=== PATIENT | female | born 1950 | race Caucasian/White ===

== ENCOUNTER 2017-12-23 08:29 | Day surgery (SDC) | payer MEDICARE, OTHER ==
[~2017-12-23] VITALS: Ht 170.2 cm; Wt 61.2 kg
[~2017-12-23 08:29] MED LIST: CALCIUM500 M1 PO; DILTIAZEM 24HR180 M1 PO; ESCITALOPRAM OX20 MG PO; FUROSEMIDE20 MG PO; LIPITOR20 MG PO; MAGNESIUM27 MG PO; MULTIVITAMINS1 EAC7 PO; PINDOLOL10 MG PO; SUDOGEST60 MG PO; ULTRAM50 MG PO; VALACYCLOVIR500 MG PO; VITAMIN B122500 MC1 PO; ZANAFLEX4 M1 PO; ZESTRIL40 MG PO
--- NOTE | 2017-12-23 10:44 | NUR ---
12/23/17 1044 Katherin Iverson 1034 PT ARRIVES TO PACU. AWAKENS TO VOICE. DENIES PAIN AND NAUSEA. 02 AT 2L VIA NC. VITALS STABLE.
--- NOTE | 2017-12-24 09:05 | OR ---
[facility] [address] [place], [place] [address] Signed DATE OF OPERATION: 12/23/2017 SURGEON: Herb Alcantar MD UPPER ENDOSCOPY REPORT PREOPERATIVE DIAGNOSES: 1. History of Sandoval's esophagus. 2. Bloating, vomiting and burping. 3. Hiatal hernia and acid reflux. 4. Chronic mild esophageal dysphagia. 5. History of gastroduodenitis. 6. History of shallow gastric ulcer. POSTOPERATIVE DIAGNOSES: 1. Antral gastric ulcers x3. 2. Cmgiadnr-ic-xephwk hemorrhagic gastroduodenitis. 3. Small hiatal hernia. 4. No visible evidence of Sandoval's esophagus. PROCEDURES PERFORMED: EGD with CLOtest and biopsies of the pyloric bulb, antrum and GE junction. ESTIMATED BLOOD LOSS: None. INDICATIONS OF DESCRIPTION: Claudia is a 67-year-old female who has presented now over multiple years with similar upper GI symptoms. She is said to have a history of Sandoval's esophagus along with a hiatal hernia and acid reflux. She always has bloating, vomiting and burping. She has chronic mild esophageal dysphagia with a previous history of gastric duodenitis and a possible shallow gastric ulcer. She also has significant anxiety, for which she takes medication. Interestingly, she takes no medication for her stomach. She is now retired and helping raise two grandchildren and continue to smoke about a pack of cigarettes a day. In the office, I gave her a booklet on acid reflux, hiatal hernias, and Sandoval's esophagus. We looked at the pictures for upper endoscopy. She is very familiar with that test. There is risk including, but not limited to gas bloating, crampy abdominal pain, bleeding, perforation requiring surgery, and missed diagnosis. She also understands the need for IV conscious sedation. She had expressed understanding, and wished to proceed. Electronically Signed By: HERB ALCANTAR MD 12/24/17 0905 PATIENT NAME: CLAUDIA CRUZ OPERATIVE REPORT DATE OF : 48 REPORT #: [id number] PHYSICIAN: HERB ALCANTAR MD PCP: RHIANNA TOBAR MD REPORT IS CONFIDENTIAL AND NOT TO BE RELEASED WITHOUT AUTHORIZATION [facility] [address] [place], [place] [address] Signed DESCRIPTION OF PROCEDURE: Claudia was taken into endoscopy suite and placed in the supine semi-recumbent position. She was given 5 mg of Versed and 100 mcg of fentanyl to cover the case. The posterior oropharynx was anesthetized with Hurricaine spray. A bite block was utilized for the case. The adult gastroscope was introduced and advanced all the way out into the third portion of the duodenum under direct visualization of the camera without difficulty. The second, and third portions of duodenum were fine, but the pyloric bulb was clearly inflamed with hemorrhagic punctate areas. No obvious ulcerations in the pyloric bulb itself. We did take biopsies from the bulb for pathologic review. Back in the stomach, she had two ulcers on the rim of the antrum going into the pyloric bulb and then one proximal that was moderately large and been fairly deep. Of course, she has multiple areas of punctate hemorrhage throughout her stomach as well. We took biopsies of the antrum for CLOtest, as well as pathologic review. We saw no evidence of any cancer. Upon retroflexion of the scope, she has just a very small hiatal hernia. The scope was withdrawn through the area of GE junction, which was compliant without stricture. We saw no gastric or esophageal varices. She has a little granulation tissue around the Z-line, but no Sandoval's mucosa. The middle and upper esophagus were fine. After this, the gas was suctioned out and the gastroscope removed. Claudia tolerated the procedure quite well. RECOMMENDATIONS: I have written a prescription for Prilosec 20 mg p.o. b.i.d. for two months. After that, she can cutback to once a day or move back to an H2 ciara. In the meantime I will see her in the office in a week or so for followup. Herb Alcantar MD ALB/MODL /[id number] cc: MD Rhianna Cabrera MD Electronically Signed By: HERB ALCANTAR MD 12/24/17 0905 PATIENT NAME: CLAUDIA CRUZ OPERATIVE REPORT DATE OF : 48 REPORT #: [id number] PHYSICIAN: HERB ALCANTAR MD PCP: RHIANNA TOBAR MD REPORT IS CONFIDENTIAL AND NOT TO BE RELEASED WITHOUT AUTHORIZATION [address] [address] Signed Copies: HERB ALCANTAR MD, RUSSEL J MD ~ Electronically Signed By: HERB ALCANTAR MD 12/24/17 0905 PATIENT NAME: NANCYCLAUDIA OPERATIVE REPORT DATE OF : 48 REPORT #: [id number] PHYSICIAN: HERB ALCANTAR MD PCP: RHIANNA TOBAR MD REPORT IS CONFIDENTIAL AND NOT TO BE RELEASED WITHOUT AUTHORIZATION
== END 2017-12-23 11:21 | disposition home or self-care (01) ==
LOC: OPS 08:29 → DS 08:29 → OPS 09:45 → DS 09:45 → OPS 11:21
PROVIDERS: Colon & Rectal Surgery
PROC: 0DB78ZX Excision of Stomach, Pylorus, Via Natural or Artificial Opening Endoscopic, Diagnostic (ICD-10-PCS; 2017-12-23)
PROC: 0DB48ZX Excision of Esophagogastric Junction, Via Natural or Artificial Opening Endoscopic, Diagnostic (ICD-10-PCS; 2017-12-23)
PROC: 0DB98ZX Excision of Duodenum, Via Natural or Artificial Opening Endoscopic, Diagnostic (ICD-10-PCS; principal; 2017-12-23 09:45)
DX: K29.50 Unspecified chronic gastritis without bleeding (principal); K29.80 Duodenitis without bleeding; K21.0 Gastro-esophageal reflux disease with esophagitis; K44.9 Diaphragmatic hernia without obstruction or gangrene; K25.9 Gastric ulcer, unspecified as acute or chronic, without hemorrhage or perforation; I10 Essential (primary) hypertension; E78.5 Hyperlipidemia, unspecified; M85.80 Other specified disorders of bone density and structure, unspecified site; M19.90 Unspecified osteoarthritis, unspecified site; F32.9 Major depressive disorder, single episode, unspecified; F41.9 Anxiety disorder, unspecified; F17.210 Nicotine dependence, cigarettes, uncomplicated; Z88.2 Allergy status to sulfonamides; Z79.891 Long term (current) use of opiate analgesic; Z79.899 Other long term (current) drug therapy
CPT/HCPCS: 86677; 99153; G0500; J2250; J3010; J7120

== ENCOUNTER 2022-01-29 18:10 | Emergency (ER) | payer MEDICARE, OTHER ==
[~2022-01-29] VITALS: Ht 170.2 cm; Wt 61.2 kg
--- OUTSIDE RECORDS SUMMARY | 2022-01-29 18:13 | XMS ---
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 EYani VISIT COUNT (12 MO.) 1 [facility] TOTAL 1 NOTE: Visits indicate total known visits. ED/UCC VISIT TRACKING (12 MO.) 01/29/2022 18:11 [facility] [place] TYPE: Emergency COMPLAINT: - NECK PAIN INPATIENT VISIT TRACKING (12 MO.) No inpatient visits to display in this time frame [id number]
[2022-01-29] MEDS ORDERED: HYDROCODON-ACE1 EA10 PO (18:45)
[2022-01-29] MEDS ORDERED: METOPROLOL SUCC50 MG PO (19:58)
[2022-01-29] MEDS ORDERED: GABAPENTIN300 MG PO (19:58)
== END 2022-01-29 20:03 | disposition home or self-care (01) ==
LOC: ED 18:10
DX: M43.6 Torticollis (principal); I10 Essential (primary) hypertension; E78.00 Pure hypercholesterolemia, unspecified; F17.200 Nicotine dependence, unspecified, uncomplicated; Z88.2 Allergy status to sulfonamides; Z79.899 Other long term (current) drug therapy
CPT/HCPCS: 96372; 99283; A9270; J1885

== ENCOUNTER 2023-07-05 11:54 | Inpatient (IN) | payer MEDICARE, OTHER ==
[~2023-07-05] VITALS: Ht 170.2 cm; Wt 62.8 kg
[~2023-07-05 11:54] MED LIST changes: +GABAPENTIN300 MG PO; +HYDROCODON-ACE1 EA10 PO; +METOPROLOL SUCC50 MG PO
--- OUTSIDE RECORDS SUMMARY | 2023-07-05 11:56 | XMS ---
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 Diego has no Care Guidelines for this patient. Carina VISIT COUNT (12 MO.) 1 [facility] TOTAL 1 NOTE: Visits indicate total known visits. ED/UCC VISIT TRACKING (12 MO.) 07/05/2023 11:54 [facility] [place] TYPE: Emergency COMPLAINT: - FALL INPATIENT VISIT TRACKING (12 MO.) No inpatient visits to display in this time frame [id number]
[2023-07-05] MEDS ORDERED: HYDROmorphone HCL 1 MG/ML SYR IV ONE (12:15)
[2023-07-05 12:33] LABS: BASOPHILS 0.8 % (0-2); EOSINOPHILS 1.3 % (0-6); HEMATOCRIT 35.7 % (35.0-50.0); HEMOGLOBIN 12.6 g/dL (12.0-18.0); LYMPHOCYTES 10.4 % (24-44); MCH 37.1 (27-36); MCHC 35.4 g/dl (30-36); MCV 104.9 fl (81-99); MONOCYTES 9.1 % (0-12); NEUTROPHILS 78.4 % (39-80); PLATELET COUNT 210 K/uL (140-440); RDW 15.1 (10.5-15.0)
[2023-07-05 12:56] LABS: ALBUMIN 3.4 g/dL (3.4-5.0); ALBUMIN/GLOBULIN RATIO 1.1 (1.1-2.4); BUN/CREATININE RATIO 9.85 (6.0-28.6); CALCIUM 8.5 mg/dL (8.5-10.1); CREATININE, SERUM 0.71 mg/dL (0.55-1.02); PROTEIN, TOTAL 6.5 g/dL (6.4-8.2)
[2023-07-05 13:05] LABS: ANION GAP 16.5 (7-21)
[2023-07-05 13:07] LABS: POTASSIUM 2.5 mmol/L (3.5-5.1)
[2023-07-05] MEDS ORDERED: HYDROmorphone HCL 1 MG/ML SYR IV PRN (13:45)
[2023-07-05 13:55] LABS: ABO A; ANTIBODY SCREEN NEGATIVE; RH POSITIVE
[2023-07-05] MEDS ORDERED: LIDOCAINE 2% VISCOUS 6 ML SYR TOP ONE (14:00)
[2023-07-05] MEDS ORDERED: LACTATED RINGER'S 1,000 ML IV SCH (14:00)
[2023-07-05] MEDS ORDERED: IBLOOD GLUCOSE TEST STRIP 1 EA TEST XX PRN (14:00)
[2023-07-05] MEDS ORDERED: POTASSIUM CHLORIDE 40 MEQ,LIDOCAINE HCL 1% 40 MG in DEXTROSE 5% 500 ML IV ONE (14:30)
[2023-07-05 15:05] VITALS: BP 144/76
[2023-07-05] MEDS ORDERED: DILTIAZEM 24HR180 M1 PO (16:14)
[2023-07-05] MEDS ORDERED: TIZANIDINE HCL4 MG PO (16:15)
[2023-07-05] MEDS ORDERED: OMEPRAZOLE20 MG PO (16:16)
[2023-07-05] MEDS ORDERED: TRAMADOL HCL50 MG PO (16:34)
[2023-07-05] MEDS ORDERED: POTASSIUM CHLORIDE 10 MEQ TABCR PO ONE ×2 (16:45→22:30)
[2023-07-05] MEDS ORDERED: OXYCODONE/APAP 5/325 TAB PO PRN (16:45)
[2023-07-05 17:15] VITALS: BP 146/83
[2023-07-05 17:20] VITALS: BP 146/83
[2023-07-05] MEDS ORDERED: LIDOCAINE HCL 2% 5 ML SDV ONE (19:59)
[2023-07-05] MEDS ORDERED: Ropivacaine HCl 0.5% 30 ML VIAL ONE (19:59)
[2023-07-05] MEDS ORDERED: SODIUM CHLORIDE 0.9% 20 ML IV ONE (19:59)
[2023-07-05] MEDS ORDERED: DEXAMETHASONE SOD PHOS 4 MG/ML VIAL ONE (19:59)
[2023-07-05 21:56] VITALS: BP 126/76
[2023-07-05 21:58] VITALS: BP 126/76
[2023-07-05 22:06] LABS: MAGNESIUM 1.2 mg/dL (1.8-2.4); POTASSIUM 3.3 mmol/L (3.5-5.1)
[2023-07-05] MEDS ORDERED: MAGNESIUM SULFATE 4 GM/100 ML BAG IV SCH (22:30)
[2023-07-06] VITALS (11 sets, daily range): BP systolic 102–150; BP diastolic 68–97
[2023-07-06 05:25] LABS: BASOPHILS 0.2 % (0-2); HEMATOCRIT 37.1 % (35.0-50.0); HEMOGLOBIN 12.9 g/dL (12.0-18.0); LYMPHOCYTES 3.6 % (24-44); MCHC 34.9 g/dl (30-36); MONOCYTES 2.1 % (0-12); NEUTROPHILS 94.1 % (39-80); PLATELET COUNT 198 K/uL (140-440); RDW 15.4 (10.5-15.0)
[2023-07-06 05:39] LABS: ALBUMIN 3.2 g/dL (3.4-5.0); ANION GAP 10.2 (7-21); BILIRUBIN, TOTAL 1.3 ng/dL (0.2-1.0); BUN/CREATININE RATIO 12.69 (6.0-28.6); CALCIUM 8.2 mg/dL (8.5-10.1); CREATININE, SERUM 0.63 mg/dL (0.55-1.02); POTASSIUM 4.2 mmol/L (3.5-5.1); PROTEIN, TOTAL 6.4 g/dL (6.4-8.2)
[2023-07-06] MEDS ORDERED: hydrOXYzine pamoate 25 MG CAP PO ONE (06:45)
[2023-07-06] MEDS ORDERED: CEFAZOLIN SODIUM 2 GM/20 ML SYR IV SCH ×2 (07:00→18:00)
[2023-07-06] MEDS ORDERED: LIDOCAINE HCL 1% 5 ML SDV SUB-Q ONE (07:00)
[2023-07-06] MEDS ORDERED: INTRA-ARTICULAR ANALGESIC INJECTION XX SCH (07:00)
[2023-07-06] MEDS ORDERED: TRANEXAMIC ACID 2,000 MG in SODIUM CHLORIDE 0.9% 100 ML IV SCH (07:00)
[2023-07-06] MEDS ORDERED: LACTATED RINGER'S 1,000 ML IV SCH (07:30)
[2023-07-06] MEDS ORDERED: MIDAZOLAM HCL 2 MG/2 ML VIAL ONE (10:44)
[2023-07-06] MEDS ORDERED: LIDOCAINE HCL 2% 5 ML SDV ONE ×2 (11:19→11:29)
[2023-07-06] MEDS ORDERED: propofoL 200 MG/20 ML VIAL ONE (11:19)
[2023-07-06] MEDS ORDERED: Ropivacaine HCl 0.5% 30 ML VIAL ONE (11:20)
[2023-07-06] MEDS ORDERED: DEXAMETHASONE SOD PHOS 4 MG/ML VIAL ONE (11:20)
[2023-07-06] MEDS ORDERED: ondansetron HCL 4 MG/2 ML VIAL ONE (11:20)
[2023-07-06] MEDS ORDERED: SODIUM CHLORIDE 0.9% 20 ML IV ONE (11:20)
[2023-07-06] MEDS ORDERED: BUPIVACAINE 0.75% IN DEXTROSE 2 ML AMP ONE (11:22)
[2023-07-06] MEDS ORDERED: CEFAZOLIN SODIUM 2 GM/20 ML SYR ONE (11:44)
[2023-07-06] MEDS ORDERED: KETAMINE in NS 50 MG/5 ML SYR ONE (11:59)
[2023-07-06] MEDS ORDERED: LACTATED RINGER'S 1,000 ML IV ONE (12:59)
[2023-07-06] MEDS ORDERED: fentaNYL citrate 50 MCG/ML SDV IV PRN (13:00)
[2023-07-06] MEDS ORDERED: droPERidol 5 MG/2 ML VIAL IV PRN (13:00)
[2023-07-06] MEDS ORDERED: ondansetron HCL 4 MG/2 ML VIAL IV PRN (13:00)
[2023-07-06] MEDS ORDERED: IBLOOD GLUCOSE TEST STRIP 1 EA TEST VI PRN (13:00)
[2023-07-06] MEDS ORDERED: NALOXONE HCL 0.4 MG SYR IV PRN (13:00)
[2023-07-06] MEDS ORDERED: PROCHLORPERAZINE EDISYLATE 10 MG/2 ML VIAL IV PRN (13:00)
[2023-07-06] MEDS ORDERED: HYDROmorphone HCL 1 MG/ML SYR IV PRN (13:00)
[2023-07-06] MEDS ORDERED: ondansetron HCL 4 MG TAB PO PRN (13:30)
[2023-07-06] MEDS ORDERED: [UNRECOGNIZED DRUG - CODE] PO PRN (13:45)
[2023-07-06] MEDS ORDERED: TRANEXAMIC ACID IN NACL,ISO-OS 1,000 MG/100 ML PIGGYBACK IV ONE (15:00)
[2023-07-06] MEDS ORDERED: ACETAMINOPHEN 500 MG TAB PO SCH (15:00)
[2023-07-07] VITALS (25 sets, daily range): BP systolic 91–149; BP diastolic 53–97
[2023-07-07] MEDS ORDERED: CEFAZOLIN SODIUM 2 GM/20 ML SYR IV ONE (04:00)
--- NOTE | 2023-07-07 07:56 | OR ---
[facility] [address] [place], [place] [address] Signed DATE OF OPERATION: 07/06/2023 SURGEON: Manny Brannon MD PREOPERATIVE DIAGNOSIS: Garden 4 femoral neck fracture, right. POSTOPERATIVE DIAGNOSIS: Garden 4 femoral neck fracture, right. PROCEDURE PERFORMED: Right bipolar hemiarthroplasty. ENTERPRISE APPLICATION ANALYST: Brenda Moon PA-C. Brenda was present and critical for all portions of procedure. ANESTHESIA: Spinal. BLOOD LOSS: 175 mL. IMPLANTS: Andre Echo FX size 11 stem with a +0 head and a 44 bipolar. BRIEF HISTORY: Claudia is a 73-year-old female, who suffered a ground level fall yesterday fracturing her hip and her right wrist. She was seen in the ER. Her labs revealed her potassium to be 2.5. She was admitted and her potassium was replaced and she was felt to be stable for surgery today. Risks and benefits of operative treatment discussed with her and she elected to proceed. PROCEDURE IN DETAIL: Once consent was obtained she was taken to the operating room. After adequate anesthesia she was placed in the left lateral decubitus position. All downside pressure points were well padded and the axillary roll was placed. The hip was then prepped and draped in a standard sterile fashion. The hip was approached through standard anterior lateral approach. This was carried through skin and subcutaneous tissue. The IT band was divided longitudinally. The vastus lateralis was then split from the tip of the Electronically Signed By: MANNY BRANNON MD 07/07/23 0756 PATIENT NAME: CLAUDIA CRUZ OPERATIVE REPORT DATE OF : 48 REPORT #: [id number] PHYSICIAN: MANNY BRANNON MD PCP: SAMUEL PERRIN PA-C REPORT IS CONFIDENTIAL AND NOT TO BE RELEASED WITHOUT AUTHORIZATION [facility] [address] [place], [place] [address] Signed trochanter along the anterior margin of the femur distally and elevated in a subperiosteal manner to the level of the lesser trochanter. The gluteus and capsule were then split from the trochanter to the acetabular rim and peeled off the anterior femoral neck. The femoral neck fracture was quite proximal. The femoral neck cut was then made one fingerbreadth above the lesser trochanter. The napkin ring of bone was removed as was the femoral head. Femoral head was sized to 44. The 44 trial fit in the acetabulum quite nicely. Attention was turned to the proximal femur. Proximal femur was opened using the Next Callerie cutter followed by the Charzachariah awl. It was then sequentially broached up to an 11. The 11 was found to be quite well fitting. The 11 stem was then obtained and impacted until it was well-seated. This was then trialed using a +0 head and a 44 bipolar. This was quite stable with negative Shuck. We then dislocated the hip and removed the trial head. The head components were then obtained and put together on the back table. The head was then impacted onto the femoral stem. Again, the hip was reduced. Excellent leg lengths and stability were noted. There was no impingement. The wound was copiously irrigated with a bottle of Surgiphor followed by normal saline. The periarticular soft tissues were injected with 100 mL ropivacaine Toradol mixture. The capsule was closed using #2 FiberWire. The vastus and IT band layers were closed independently using #1 Stratafix. Subcutaneous tissue with 0 Stratafix and skin with kusum. Wound was sealed with LiquiBand and an Acticoat-7 dressing was applied. She was awakened, taken to recovery room in satisfactory condition. All sponge, needle, and instrument counts were correct. Manny Brannon MD BA/MODL /[id number] Copies: ~ Electronically Signed By: MANNY BRANNON MD 07/07/23 0756 PATIENT NAME: CLAUDIA CRUZ OPERATIVE REPORT DATE OF : 48 REPORT #: [id number] PHYSICIAN: MANNY BRANNON MD PCP: SAMUEL PERRIN PA-C REPORT IS CONFIDENTIAL AND NOT TO BE RELEASED WITHOUT AUTHORIZATION
[2023-07-07] MEDS ORDERED: Rivaroxaban 10 MG TAB PO SCH (08:00)
[2023-07-07] MEDS ORDERED: OXYCODONE HCL 5 MG TAB PO PRN (08:15)
--- NOTE | 2023-07-07 11:01 | EKG ---
[facility] [address] [facility] [place], [place] [address] Signed Normal sinus rhythm with sinus arrhythmia Minimal voltage criteria for LVH, may be normal variant ( Ambrosio product ) Nonspecific T wave abnormality Abnormal ECG No previous ECGs available Confirmed by Darren Gutiérrez MD ([id number]) on 07/07/2023 11:01:14 AM Electronically Signed By: DARREN GUTIÉRREZ 07/07/23 1101 PATIENT NAME: THERESA CRUZ Electrocardiogram DATE OF : 48 PHYSICIAN: DARREN GUTIÉRREZ REPORT #: [id number] REPORT IS CONFIDENTIAL AND NOT TO BE RELEASED WITHOUT AUTHORIZATION
--- NOTE | 2023-07-07 11:04 | EKG ---
[facility] [address] [facility] [place] [address] Signed Normal sinus rhythm Normal ECG When compared with ECG of 05-JUL-2023 16:32, (Unconfirmed) Sinus rhythm has replaced Atrial fibrillation Confirmed by Dagoberto Gutiérrez MD ([id number]) on 07/07/2023 11:04:15 AM Electronically Signed By: DAGOBERTO GUTIÉRREZ 07/07/23 1104 PATIENT NAME: THERESA CRUZ Electrocardiogram DATE OF : 48 PHYSICIAN: DAGOBERTO GUTIÉRREZ REPORT #: [id number] REPORT IS CONFIDENTIAL AND NOT TO BE RELEASED WITHOUT AUTHORIZATION
--- NOTE | 2023-07-07 11:04 | EKG ---
[facility] [address] [facility] [place] [address] Signed Atrial fibrillation Nonspecific ST abnormality Abnormal ECG When compared with ECG of 05-JUL-2023 12:34, (Unconfirmed) Atrial fibrillation has replaced Sinus rhythm Confirmed by Darren Gutiérrez MD ([id number]) on 07/07/2023 11:04:17 AM Electronically Signed By: DARREN GUTIÉRREZ 07/07/23 1104 PATIENT NAME: NANCYTHERESA Electrocardiogram DATE OF : 48 PHYSICIAN: DARREN GUTIÉRREZ REPORT #: [id number] REPORT IS CONFIDENTIAL AND NOT TO BE RELEASED WITHOUT AUTHORIZATION
[2023-07-07] MEDS ORDERED: PANTOPRAZOLE SODIUM 40 MG TABEC PO SCH (12:22)
[2023-07-07] MEDS ORDERED: dilTIAZem HCL 180 MG CAPCR PO SCH (12:23)
[2023-07-07] MEDS ORDERED: ESCITALOPRAM OXALATE 10 MG TAB PO SCH (12:24)
[2023-07-07] MEDS ORDERED: lisinopriL 40 MG TAB PO SCH (12:25)
[2023-07-07] MEDS ORDERED: METOPROLOL SUCCINATE 50 MG TABCR PO SCH (12:30)
[2023-07-07 14:00] LABS: ANION GAP 11.2 (7-21); BUN/CREATININE RATIO 12.98 (6.0-28.6); CALCIUM 8.6 mg/dL (8.5-10.1); CREATININE, SERUM 0.77 mg/dL (0.55-1.02); POTASSIUM 3.2 mmol/L (3.5-5.1)
[2023-07-07] MEDS ORDERED: ADENOSINE 3 MG/ML VIAL IV ONE (14:00)
[2023-07-07 14:34] LABS: BASOPHILS 0.1 % (0-2); EOSINOPHILS 0.3 % (0-6); HEMATOCRIT 32.5 % (35.0-50.0); HEMOGLOBIN 11.4 g/dL (12.0-18.0); LYMPHOCYTES 13.4 % (24-44); MCH 37.5 (27-36); MCHC 35.1 g/dl (30-36); MCV 106.9 fl (81-99); MONOCYTES 11.6 % (0-12); NEUTROPHILS 74.6 % (39-80); PLATELET COUNT 192 K/uL (140-440); RBC 3.04 M/ul (4.3-5.7)
[2023-07-07] MEDS ORDERED: GABAPENTIN 300 MG CAP PO SCH (15:00)
[2023-07-07] MEDS ORDERED: MAGNESIUM SULFATE 4 GM/100 ML BAG IV ONE (16:45)
[2023-07-07] MEDS ORDERED: POTASSIUM CHLORIDE 10 MEQ TABCR PO ONE ×2 (16:45→18:45)
[2023-07-07] MEDS ORDERED: ATORVASTATIN 20 MG TAB PO SCH (17:00)
[2023-07-08] VITALS (13 sets, daily range): BP systolic 122–148; BP diastolic 73–99
[2023-07-08 05:32] LABS: BASOPHILS 0.1 % (0-2); HEMOGLOBIN 10.1 g/dL (12.0-18.0); LYMPHOCYTES 11.7 % (24-44); MCH 37.6 (27-36); MCV 107.6 fl (81-99); MONOCYTES 13.5 % (0-12); NEUTROPHILS 73.7 % (39-80); PLATELET COUNT 169 K/uL (140-440); RBC 2.69 M/ul (4.3-5.7); RDW 15.1 (10.5-15.0)
[2023-07-08 05:45] LABS: ANION GAP 11.2 (7-21); BUN/CREATININE RATIO 17.54 (6.0-28.6); CREATININE, SERUM 0.57 mg/dL (0.55-1.02); MAGNESIUM 2.1 mg/dL (1.8-2.4); POTASSIUM 4.2 mmol/L (3.5-5.1)
--- NOTE | 2023-07-08 12:43 | EKG ---
[facility] [address] [facility] [place] [address] Signed Sinus rhythm with premature supraventricular complexes and fusion complexes Otherwise normal ECG When compared with ECG of 06-JUL-2023 07:56, fusion complexes are now present premature supraventricular complexes are now present Confirmed by Darren Gutiérrez MD ([id number]) on 07/08/2023 12:43:29 PM Electronically Signed By: DARREN GUTIÉRREZ 07/08/23 1243 PATIENT NAME: THERESA CRUZ [place] Electrocardiogram DATE OF : 48 PHYSICIAN: DARREN GUTIÉRREZ REPORT #: [id number] REPORT IS CONFIDENTIAL AND NOT TO BE RELEASED WITHOUT AUTHORIZATION
--- NOTE | 2023-07-08 12:43 | EKG ---
[facility] [address] [facility] [place] [address] Signed Poor data quality, interpretation may be adversely affected Atrial fibrillation Nonspecific ST abnormality Abnormal ECG When compared with ECG of 07-JUL-2023 13:26, (Unconfirmed) Significant changes have occurred Confirmed by Darren Gutiérrez MD ([id number]) on 07/08/2023 12:42:44 PM Electronically Signed By: DARREN GUTIÉRREZ 07/08/23 1243 PATIENT NAME: NANCYTHERESA J Electrocardiogram DATE OF : 48 PHYSICIAN: DARREN GUTIÉRREZ REPORT #: [id number] REPORT IS CONFIDENTIAL AND NOT TO BE RELEASED WITHOUT AUTHORIZATION
--- NOTE | 2023-07-08 12:43 | EKG ---
[facility] [address] [facility] [place] [address] Signed Supraventricular tachycardia Cannot rule out Inferior infarct , age undetermined Marked ST abnormality, possible lateral subendocardial injury Abnormal ECG When compared with ECG of 07-JUL-2023 11:00, (Unconfirmed) Significant changes have occurred Confirmed by Darren Gutiérrez MD ([id number]) on 07/08/2023 12:42:51 PM Electronically Signed By: DARREN GUTIÉRREZ 07/08/23 1243 PATIENT NAME: THERESA CRUZ [place] Electrocardiogram DATE OF : 48 PHYSICIAN: DARREN GUTIÉRREZ REPORT #: [id number] REPORT IS CONFIDENTIAL AND NOT TO BE RELEASED WITHOUT AUTHORIZATION
--- NOTE | 2023-07-08 12:43 | EKG ---
[facility] [address] [facility] [place] [address] Signed Atrial fibrillation with premature ventricular or aberrantly conducted complexes Abnormal ECG When compared with ECG of 07-JUL-2023 13:42, (Unconfirmed) No significant change was found Confirmed by Darren Gutiérrez MD ([id number]) on 07/08/2023 12:43:00 PM Electronically Signed By: DARREN GUTIÉRREZ 07/08/23 1243 PATIENT NAME: THERESA CRUZ [place] Electrocardiogram DATE OF : 48 PHYSICIAN: DARREN GUTIÉRREZ REPORT #: [id number] REPORT IS CONFIDENTIAL AND NOT TO BE RELEASED WITHOUT AUTHORIZATION
[2023-07-08] MEDS ORDERED: METOPROLOL TARTRATE 50 MG TAB PO SCH (21:00)
[2023-07-09] VITALS: BP 123/88
[2023-07-09 04:00] VITALS: BP 133/94
[2023-07-09 05:58] LABS: BUN/CREATININE RATIO 16.98 (6.0-28.6); CREATININE, SERUM 0.53 mg/dL (0.55-1.02)
[2023-07-09 08:00] VITALS: BP 133/94
[2023-07-09 12:27] VITALS: BP 122/83
--- NOTE | 2023-07-09 13:27 | EKG ---
[facility] [address] [facility] [place], [place] [address] Signed Atrial fibrillation Abnormal ECG When compared with ECG of 07-JUL-2023 13:42, (Unconfirmed) No significant change was found Confirmed by Dagoberto Gutiérrez MD ([id number]) on 07/09/2023 1:27:17 PM Electronically Signed By: DAGOBERTO GUTIÉRREZ 07/09/23 1327 PATIENT NAME: THERESA CRUZ Electrocardiogram DATE OF : 48 PHYSICIAN: DAGOBERTO GUTIÉRREZ REPORT #: [id number] REPORT IS CONFIDENTIAL AND NOT TO BE RELEASED WITHOUT AUTHORIZATION
== END 2023-07-09 13:00 | disposition swing bed (61) | DRG 522 ==
LOC: ED 11:54 → MS 13:39 → CCU 13:39 → MS 07-09 12:18
PROVIDERS: Emergency Medicine; Internal Medicine; ADMIT Specialist; ATTEND Specialist
PROC: 0SRR0JZ Replacement of Right Hip Joint, Femoral Surface with Synthetic Substitute, Open Approach (ICD-10-PCS; principal; 2023-07-06 12:00)
DX: S72.011A Unspecified intracapsular fracture of right femur, initial encounter for closed fracture (principal); I47.10 Supraventricular tachycardia, unspecified; S52.501A Unspecified fracture of the lower end of right radius, initial encounter for closed fracture; W18.30XA Fall on same level, unspecified, initial encounter; Y93.9 Activity, unspecified; I10 Essential (primary) hypertension; I48.91 Unspecified atrial fibrillation; I25.10 Atherosclerotic heart disease of native coronary artery without angina pectoris; K21.9 Gastro-esophageal reflux disease without esophagitis; E78.5 Hyperlipidemia, unspecified; F41.9 Anxiety disorder, unspecified; M43.6 Torticollis; F17.210 Nicotine dependence, cigarettes, uncomplicated; Z98.1 Arthrodesis status; Z98.890 Other specified postprocedural states; Z88.2 Allergy status to sulfonamides; Z79.899 Other long term (current) drug therapy; Z79.811 Long term (current) use of aromatase inhibitors; E87.6 Hypokalemia; Z90.49 Acquired absence of other specified parts of digestive tract
CPT/HCPCS: 01214; 36415; 51702; 70450; 71045; 72125; 72170; 73110; 73552; 76942; 80048; 80053; 83735; 84132; 85025; 86850; 86900; 86901; 93005; 93010; 94760; 94762; 97162; 97164; 97166; 97168; 97530; 97535; 99285-25; A9270; C1776; J0153; J0690; J1100; J1170; J2001; J2250; J2405; J2704; J2795; J3475; J3480; J3490; J7060; J7121; Q0177

== ENCOUNTER 2024-07-15 06:18 | Emergency (ER) | payer MEDICARE, OTHER ==
[~2024-07-15] VITALS: Ht 170.2 cm; Wt 67.2 kg
[~2024-07-15 06:18] MED LIST changes: +ACETAMINOPHEN500 MG PO; +OMEPRAZOLE20 MG PO; +OXYCODONE HCL5 MG PO; +TIZANIDINE HCL4 MG PO; +TRAMADOL HCL50 MG PO
[2024-07-15] MEDS ORDERED: HYDROmorphone HCL 1 MG/ML SYR IV PRN (06:30)
[2024-07-15] MEDS ORDERED: propofoL 200 MG/20 ML VIAL IV ONE (07:15)
[2024-07-15] MEDS ORDERED: HYDROCODONE BIT/ACETAMINOPHEN 5/325 MG 1 TAB HOME.PACK PO ONE (07:45)
[2024-07-15 08:50] VITALS: BP 145/98
== END 2024-07-15 08:50 | disposition home or self-care (01) ==
LOC: ED 06:18
DX: T84.020A Dislocation of internal right hip prosthesis, initial encounter (principal); I10 Essential (primary) hypertension; F17.200 Nicotine dependence, unspecified, uncomplicated; Z88.2 Allergy status to sulfonamides; Z79.899 Other long term (current) drug therapy
CPT/HCPCS: 27250; 72170; 73502; 94799; 99283-25; A9270; J1171; J2704

== ENCOUNTER 2024-12-01 05:15 | Emergency (ER) | payer MEDICARE, OTHER ==
[~2024-12-01] VITALS: Ht 170.2 cm; Wt 71.0 kg
[2024-12-01] MEDS ORDERED: HYDROmorphone HCL 1 MG/ML SYR IV PRN (05:30)
[2024-12-01] MEDS ORDERED: HYDROCODON-ACE1 EA10 PO (07:23)
[2024-12-01] MEDS ORDERED: HYDROCODONE BIT/ACETAMINOPHEN 5/325 MG 1 TAB HOME.PACK PO ONE ×2 (07:30→11:06)
[2024-12-01 11:35] VITALS: BP 120/89
== END 2024-12-01 11:35 | disposition home or self-care (01) ==
LOC: ED 05:15
DX: T84.020A Dislocation of internal right hip prosthesis, initial encounter (principal); S62.201A Unspecified fracture of first metacarpal bone, right hand, initial encounter for closed fracture; I10 Essential (primary) hypertension; F17.200 Nicotine dependence, unspecified, uncomplicated; Z88.2 Allergy status to sulfonamides; Z79.899 Other long term (current) drug therapy; E78.00 Pure hypercholesterolemia, unspecified; S73.004A Unspecified dislocation of right hip, initial encounter; X50.0XXA Overexertion from strenuous movement or load, initial encounter
CPT/HCPCS: 27265; 29125; 73130; 73501; 73502; 94799; 96374; 99283-25; A9270; J1171; J2704

== ENCOUNTER 2024-12-03 03:40 | Emergency (ER) | payer MEDICARE, OTHER ==
[~2024-12-03] VITALS: Ht 170.2 cm; Wt 62.3 kg
--- OUTSIDE RECORDS SUMMARY | 2024-12-03 03:43 | XMS ---
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 Diego has no Care Guidelines for this patient. Carina VISIT COUNT (12 MO.) [address] [facility] TOTAL 4 NOTE: Visits indicate total known visits. ED/C VISIT TRACKING (12 MO.) 12/03/2024 03:[address] [facility] [place] TYPE: Emergency COMPLAINT: - HIP PAIN 12/01/2024 05:15 [facility] [place] TYPE: Emergency COMPLAINT: - HIP PAIN 08/22/2024 18:22 [facility] [place] TYPE: Emergency COMPLAINT: - NEEDS RING CUT OFF HAND FINGER 07/15/2024 06:19 [facility] [place] TYPE: Emergency COMPLAINT: - HIP PAIN DIAGNOSES: - Allergy status to sulfonamides - Dislocation of internal right hip prosthesis, initial encounter - Essential (primary) hypertension - Nicotine dependence, unspecified, uncomplicated - Other long term care administrator (current) drug therapy - Pain in right hip INPATIENT VISIT TRACKING (12 MO.) No inpatient visits to display in this time frame [id number]
[2024-12-03] MEDS ORDERED: fentaNYL citrate 100 MCG/2 ML VIAL IV ONE (03:45)
[2024-12-03 08:00] VITALS: BP 137/79
== END 2024-12-03 08:00 | disposition home or self-care (01) ==
LOC: ED 03:40
DX: S73.014A Posterior dislocation of right hip, initial encounter (principal); I10 Essential (primary) hypertension; Z88.2 Allergy status to sulfonamides; Z79.899 Other long term (current) drug therapy; W06.XXXA Fall from bed, initial encounter; F17.200 Nicotine dependence, unspecified, uncomplicated
CPT/HCPCS: 27265; 73501; 73502; 94799; 96374; 99152; 99283-25; J2704; J3010